=== PATIENT | female | born 1970 | race Caucasian/White ===

== ENCOUNTER 2017-10-22 23:12 | Emergency (ER) | payer SELFPAY ==
[~2017-10-22] VITALS: Ht 154.9 cm; Wt 84.0 kg
[2017-10-23 01:07] VITALS: BP 145/97
== END 2017-10-23 01:16 | disposition home or self-care (01) ==
LOC: ED 23:12
DX: G44.209 Tension-type headache, unspecified, not intractable (principal); I10 Essential (primary) hypertension; E11.9 Type 2 diabetes mellitus without complications
CPT/HCPCS: 82962; J1885

== ENCOUNTER 2019-07-28 11:28 | Emergency (ER) | payer MEDICAID ==
[~2019-07-28] VITALS: Ht 152.4 cm; Wt 83.9 kg
[2019-07-28 11:56] VITALS: BP 139/83; Ht 152.4 cm; Wt 83.9 kg
== END 2019-07-28 13:57 | disposition home or self-care (01) ==
LOC: ED 11:28
DX: J06.9 Acute upper respiratory infection, unspecified (principal); I10 Essential (primary) hypertension